=== PATIENT | female | born 1930 | race Caucasian/White ===

== ENCOUNTER → 2021-03-31 | Outpatient (CLI) | payer MEDICARE, SELFPAY ==
[~2021-03-31] MED LIST: BACTRIM DS TAB1 EACH PO; FOLIC ACID 1 MG1 MG PO
[2021-03-31 18:22] LABS: HEMOGLOBIN 12.2 gm/dl (12.3-15.3); RED BLOOD COUNT 3.99 M/UL (4.00-5.10); WHITE BLOOD COUNT 8.4 K/UL (4.5-11.0)
[2021-03-31 18:51] LABS: BUN/CREATININE RATIO 22 (0-10)
== END ==
LOC: LAB 17:58
PROVIDERS: Nurse Practitioner Family
DX: R62.7 Adult failure to thrive (principal); I10 Essential (primary) hypertension; E11.9 Type 2 diabetes mellitus without complications; C72.0 Malignant neoplasm of spinal cord; E87.2 Acidosis
CPT/HCPCS: 80053; 83735; 85025